=== PATIENT | female | born 1965 | race Two or more races ===

== ENCOUNTER 2020-12-11 05:10 | Day surgery (SDC) | payer OTHER ==
[~2020-12-11 05:10] MED LIST: ATORVASTATIN CA10 MG PO; CLONAZEPAM1 M1 PO; COZAAR25 MG PO; CYMBALTA20 MG PO; GABAPENTIN100 M2 PO; GLIPIZIDE XL2.5 MG PO; METFORMIN HCL500 M3 PO; SEROQUEL25 MG PO
== END 2020-12-11 09:30 | disposition home or self-care (01) ==
LOC: CIR.AMB 05:10
PROVIDERS: ATTEND Surgery Surgery of the Hand
DX: M67.241 Synovial hypertrophy, not elsewhere classified, right hand (principal); Z20.822 Contact with and (suspected) exposure to COVID-19